=== PATIENT | female | born 1990 | race Two or more races ===

== ENCOUNTER 2019-09-30 22:05 | Emergency (ER) | payer MEDICAID ==
[~2019-09-30] VITALS: Ht 154.9 cm; Wt 68.0 kg
[2019-09-30 23:23] LABS: Urine Bacteria FEW /hpf (None Seen); Urine Blood Negative /uL (Negative); Urine Specific Gravity 1.032 (1.001-1.035); Urine WBC 9 /hpf (0 - 5)
[2019-09-30 23:26] VITALS: BP 108/68
== END 2019-09-30 23:58 | disposition home or self-care (01) ==
LOC: ER 22:07
DX: O23.42 Unspecified infection of urinary tract in pregnancy, second trimester (principal); Z3A.19 19 weeks gestation of pregnancy
CPT/HCPCS: 81001

== ENCOUNTER 2019-12-14 10:53 | Observation (INO) | payer MEDICAID | END 2019-12-14 11:40 | disposition home or self-care (01) | DRG 566 | LOC: LDRP 10:53 | PROVIDERS: ADMIT Specialist; ATTEND Specialist | DX: O35.8XX0 Maternal care for other (suspected) fetal abnormality and damage, not applicable or unspecified (principal); Z3A.29 29 weeks gestation of pregnancy | CPT/HCPCS: 59025; 76818; 81002; G0378 ==

== ENCOUNTER 2019-12-31 15:00 | Observation (INO) | payer MEDICAID ==
[2019-12-31] MEDS ORDERED: PREN-96 PO (16:20)
== END 2019-12-31 16:38 | disposition home or self-care (01) | DRG 566 ==
LOC: LDRP 15:00
PROVIDERS: ADMIT Specialist; ATTEND Specialist
DX: O69.89X0 Labor and delivery complicated by other cord complications, not applicable or unspecified (principal); O24.410 Gestational diabetes mellitus in pregnancy, diet controlled; Z3A.31 31 weeks gestation of pregnancy
CPT/HCPCS: 59025; 76818; 81002; 82962; G0378

== ENCOUNTER 2020-01-04 12:15 | Observation (INO) | payer MEDICAID ==
[~2020-01-04 12:15] MED LIST: PREN-96 PO
== END 2020-01-04 13:25 | disposition home or self-care (01) | DRG 566 ==
LOC: LDRP 12:15
PROVIDERS: ADMIT Specialist; ATTEND Specialist
DX: O69.89X0 Labor and delivery complicated by other cord complications, not applicable or unspecified (principal); Z3A.32 32 weeks gestation of pregnancy
CPT/HCPCS: 59025; 76818; 81002; 82948; 82962; G0378

== ENCOUNTER 2020-01-07 10:28 | Observation (INO) | payer MEDICAID | END 2020-01-07 15:29 | disposition home or self-care (01) | DRG 566 | LOC: LDRP 13:00 | PROVIDERS: ADMIT Specialist; ATTEND Specialist | DX: O36.8931 Maternal care for other specified fetal problems, third trimester, fetus 1 (principal); O32.1XX0 Maternal care for breech presentation, not applicable or unspecified; O26.893 Other specified pregnancy related conditions, third trimester; R51 Headache; O24.410 Gestational diabetes mellitus in pregnancy, diet controlled; Z3A.32 32 weeks gestation of pregnancy | CPT/HCPCS: 59025; 76818; 81002; G0378 ==

== ENCOUNTER 2020-01-11 10:03 | Observation (INO) | payer MEDICAID ==
[~2020-01-11] VITALS: Ht 154.9 cm; Wt 76.7 kg
[2020-01-11] MEDS: TERBUTALINE SULFATE 1 MG/ML 1ML VIAL SC SCH ×3 (14:29→15:24)
== END 2020-01-11 16:55 | disposition home or self-care (01) | DRG 566 ==
LOC: LDRP 12:40
PROVIDERS: ADMIT Specialist; ATTEND Specialist
DX: O36.8931 Maternal care for other specified fetal problems, third trimester, fetus 1 (principal); O24.410 Gestational diabetes mellitus in pregnancy, diet controlled; O62.9 Abnormality of forces of labor, unspecified; Z3A.33 33 weeks gestation of pregnancy
CPT/HCPCS: 59025; 76818; 81002; 82948; 82962; 96372; G0378; J3105; 96365

== ENCOUNTER 2020-01-14 19:01 | Observation (INO) | payer MEDICAID | END 2020-01-14 20:30 | disposition home or self-care (01) | DRG 566 | LOC: LDRP 19:01 | PROVIDERS: ADMIT Specialist; ATTEND Specialist | DX: O24.410 Gestational diabetes mellitus in pregnancy, diet controlled (principal); O36.8930 Maternal care for other specified fetal problems, third trimester, not applicable or unspecified; O62.9 Abnormality of forces of labor, unspecified; Z3A.33 33 weeks gestation of pregnancy | CPT/HCPCS: 59025; 76818; 81002; 82948; 82962; G0378 ==

== ENCOUNTER 2020-01-18 18:54 | Observation (INO) | payer MEDICAID | END 2020-01-18 21:15 | disposition home or self-care (01) | DRG 566 | LOC: LDRP 18:54 | PROVIDERS: ADMIT Specialist; ATTEND Specialist | DX: O24.419 Gestational diabetes mellitus in pregnancy, unspecified control (principal); O36.8930 Maternal care for other specified fetal problems, third trimester, not applicable or unspecified; Z3A.34 34 weeks gestation of pregnancy | CPT/HCPCS: 59025; 76818; 81002; 82962; 87210; G0378 ==

== ENCOUNTER 2020-01-21 08:13 | Observation (INO) | payer MEDICAID ==
[2020-01-21] MEDS ORDERED: NIF10C PO (09:05)
== END 2020-01-21 09:25 | disposition home or self-care (01) | DRG 566 ==
LOC: LDRP 08:13
PROVIDERS: ADMIT Specialist; ATTEND Specialist
DX: O36.8930 Maternal care for other specified fetal problems, third trimester, not applicable or unspecified (principal); Z3A.34 34 weeks gestation of pregnancy
CPT/HCPCS: 59025; 76818; 81002; 82948; 82962; G0378

== ENCOUNTER 2020-01-25 08:20 | Observation (INO) | payer MEDICAID ==
[~2020-01-25 08:20] MED LIST changes: +NIF10C PO
== END 2020-01-25 09:08 | disposition home or self-care (01) | DRG 566 ==
LOC: LDRP 08:20
PROVIDERS: ADMIT Specialist; ATTEND Specialist
DX: O24.419 Gestational diabetes mellitus in pregnancy, unspecified control (principal); O36.8930 Maternal care for other specified fetal problems, third trimester, not applicable or unspecified; Z3A.35 35 weeks gestation of pregnancy
CPT/HCPCS: 59025; 76818; 81002; 82948; 82962; G0378

== ENCOUNTER 2020-01-27 18:32 | Observation (INO) | payer MEDICAID ==
[2020-01-27] MEDS ORDERED: NIFEdipine 10 MG CAP PO ONE (19:15)
[2020-01-27 19:45] LABS: Urine Bacteria FEW /hpf (None Seen); Urine Blood Negative /uL (Negative); Urine Specific Gravity 1.017 (1.001-1.035); Urine WBC <1 /hpf (0 - 5)
== END 2020-01-27 21:23 | disposition home or self-care (01) | DRG 563 ==
LOC: LDRP 18:32
PROVIDERS: ADMIT Specialist; ATTEND Specialist
DX: O60.03 Preterm labor without delivery, third trimester (principal); Z3A.35 35 weeks gestation of pregnancy
CPT/HCPCS: 59025; 76818; 81001; 81002; 82948; 82962; G0378

== ENCOUNTER 2020-01-31 08:07 | Observation (INO) | payer MEDICAID | END 2020-01-31 09:27 | disposition home or self-care (01) | DRG 566 | LOC: LDRP 08:07 | PROVIDERS: ADMIT Specialist; ATTEND Specialist | DX: O24.419 Gestational diabetes mellitus in pregnancy, unspecified control (principal); O36.8930 Maternal care for other specified fetal problems, third trimester, not applicable or unspecified; O62.9 Abnormality of forces of labor, unspecified; R51 Headache; Z3A.36 36 weeks gestation of pregnancy | CPT/HCPCS: 59025; 76818; 81002; 82948; 82962; G0378 ==

== ENCOUNTER 2020-02-02 08:13 | Observation (INO) | payer MEDICAID | END 2020-02-02 09:24 | disposition home or self-care (01) | DRG 566 | LOC: LDRP 08:13 | PROVIDERS: ADMIT Specialist; ATTEND Specialist | DX: O24.410 Gestational diabetes mellitus in pregnancy, diet controlled (principal); O69.89X0 Labor and delivery complicated by other cord complications, not applicable or unspecified; Z3A.36 36 weeks gestation of pregnancy | CPT/HCPCS: 59025; 76818; 81002; 82962; G0378 ==

== ENCOUNTER 2020-02-05 08:14 | Observation (INO) | payer MEDICAID | END 2020-02-05 09:15 | disposition home or self-care (01) | LOC: LDRP 08:14 | PROVIDERS: ADMIT Specialist; ATTEND Specialist | DX: O24.410 Gestational diabetes mellitus in pregnancy, diet controlled (principal); O69.89X0 Labor and delivery complicated by other cord complications, not applicable or unspecified; Z3A.36 36 weeks gestation of pregnancy | CPT/HCPCS: 59025; 76818; 81002; 82962; 94760; G0378 ==

== ENCOUNTER 2020-02-09 08:38 | Observation (INO) | payer MEDICAID ==
[~2020-02-09 08:38] MED LIST changes: -NIF10C PO
== END 2020-02-09 09:40 | disposition home or self-care (01) ==
LOC: LDRP 08:38
PROVIDERS: ADMIT Specialist; ATTEND Specialist
DX: O24.410 Gestational diabetes mellitus in pregnancy, diet controlled (principal); O36.8930 Maternal care for other specified fetal problems, third trimester, not applicable or unspecified; Z3A.37 37 weeks gestation of pregnancy
CPT/HCPCS: 76818; 82962; G0378; 59025; 81002; 82948

== ENCOUNTER 2020-02-12 08:18 | Observation (INO) | payer MEDICAID | END 2020-02-12 09:20 | disposition home or self-care (01) | LOC: LDRP 08:18 | PROVIDERS: ADMIT Specialist; ATTEND Specialist | DX: O24.410 Gestational diabetes mellitus in pregnancy, diet controlled (principal); Z3A.37 37 weeks gestation of pregnancy | CPT/HCPCS: 59025; 76818; 81002; 82948; 82962; G0378 ==

== ENCOUNTER 2020-02-16 08:10 | Observation (INO) | payer MEDICAID | END 2020-02-16 09:50 | disposition home or self-care (01) | LOC: LDRP 08:10 | PROVIDERS: ADMIT Specialist; ATTEND Specialist | DX: O24.410 Gestational diabetes mellitus in pregnancy, diet controlled (principal); Z20.828 Contact with and (suspected) exposure to other viral communicable diseases; O36.8930 Maternal care for other specified fetal problems, third trimester, not applicable or unspecified; O62.9 Abnormality of forces of labor, unspecified; O26.893 Other specified pregnancy related conditions, third trimester; R10.2 Pelvic and perineal pain; Z3A.38 38 weeks gestation of pregnancy | CPT/HCPCS: 59025; 76818; 81002; 82948; 82962; G0378 ==

== ENCOUNTER 2020-02-16 23:51 | Inpatient (IN) | payer MEDICAID ==
[~2020-02-16] VITALS: Ht 30.5 cm; Wt 0.5 kg
[2020-02-16] MEDS ORDERED: LACT. RINGERS/OXYTOCIN 20UNITS 1,000 ML IV ONE (23:59)
[2020-02-16] MEDS ORDERED: LIDOCAINE 2%HCL (LOCAL ANESTH.) INJ 20ML MDV ONE (23:59)
[2020-02-16] MEDS ORDERED: METHYLERGONOVINE MALEATE 0.2 MG/ML AMP IM ONE (23:59)
[2020-02-17] MEDS ORDERED: LIDOCAINE 2%HCL (LOCAL ANESTH.) INJ 20ML MDV ID ONE (00:05)
[2020-02-17] MEDS ORDERED: BUTORPHANOL TARTRATE 2 MG/1 ML VIAL IV ONE (00:05)
[2020-02-17] MEDS ORDERED: PHISODERM TOP SOLN 240ML BTL TOP PRN (00:05)
[2020-02-17] MEDS ORDERED: WITCH HAZEL-GLYCERIN PAD TOP PRN (00:05)
[2020-02-17] MEDS ORDERED: LACTATED RINGER'S 1,000 ML IV SCH (00:05)
[2020-02-17] MEDS ORDERED: PROMETHAZINE HCL 25 MG/ML 1ML IM ONE (00:05)
[2020-02-17] MEDS ORDERED: PROMETHAZINE HCL 25 MG/ML 1ML IV ONE (00:05)
[2020-02-17] MEDS ORDERED: DERMOPLAST 60ML BOTTLE TOP PRN (00:05)
[2020-02-17] MEDS ORDERED: BUTORPHANOL TARTRATE 2 MG/1 ML VIAL ONE (00:08)
[2020-02-17] MEDS ORDERED: PROMETHAZINE HCL 25 MG/ML 1ML ONE (00:08)
[2020-02-17] MEDS ORDERED: LACT. RINGERS/OXYTOCIN 20UNITS 500 ML IV ONE (03:02)
[2020-02-17] MEDS ORDERED: ACCU-CHEK COMFORT CURVE STRIP VI ONE (03:15)
[2020-02-17] MEDS ORDERED: ACETAMINOPHEN 325 MG TAB PO PRN (03:15)
--- NOTE | 2020-02-17 03:45 | NUR ---
Ambulation: Patient OOB with standby assistance by RN. Patient ambulated to bathroom with steady gait. Patient able to void 200ml without difficulty. [facility] teaching provided with returned demonstration by patient. Clean gown provided and bed linen changed. Patient ambulated back to bed with steady gait and no distress noted.
[2020-02-17] MEDS ORDERED: LACT. RINGERS/OXYTOCIN 20UNITS 1,000 ML IV SCH (04:02)
[2020-02-17 04:48] LABS: Urine Bacteria FEW /hpf (None Seen); Urine Blood Negative /uL (Negative); Urine Mucus FEW (None Seen); Urine Specific Gravity 1.026 (1.001-1.035); Urine WBC 6 /hpf (0 - 5)
[2020-02-17 04:50] LABS: Alcohol, Urine < 3.0 mg/dL (0-10); Amphetamine Screen, Urine NEGATIVE (NEGATIVE); Barbiturate Scree,Urine NEGATIVE (NEGATIVE); Benzodiazephine Screen, Urine NEGATIVE (NEGATIVE); Cannabinoid Screen, Urine NEGATIVE (NEGATIVE); Cocaine Screen, Urine NEGATIVE (NEGATIVE); Opiate Scree,Urine NEGATIVE (NEGATIVE); Phencyclidine Screen, Urine NEGATIVE (NEGATIVE)
[2020-02-17 04:51] LABS: Albumin 2.5 g/dL (3.4-5.0); BUN/Creatinine Ratio 23.7; Bilirubin, Total 0.6 mg/dL (0.2-1.0); Calcium 8.2 mg/dL (8.5-10.1); Potassium 3.6 mmol/L (3.5-5.1); Total Protein 6.6 g/dL (6.4-8.2)
[2020-02-17 04:52] LABS: INR 0.93 (0.9-1.15); Partial Thromboplastin Time 27.9 sec (23.0-31.2)
[2020-02-17 04:54] LABS: Basophils # (auto) 0 10 ^3/uL (0-0.2); Basophils % (auto) 0.1 % (0.0-2.0); Eosinophils # (auto) 0.1 10 ^3/uL (0-0.8); Eosinophils % (auto) 0.7 % (0.0-7.0); Hematocrit 32.7 % (36.0-46.0); Lymphocytes # (auto) 2.3 10 ^3/uL (0.4-5.4); Lymphocytes % (auto) 21.5 % (10.0-50.0); Mean Corpuscular Hemoglobin 28.4 pg (28.0-32.0); Mean Corpuscular Hgb Conc. 33.6 g/dL (32.0-36.0); Mean Corpuscular Volume 84.6 fL (80.0-100.0); Monocytes # (auto) 0.7 10 ^3/uL (0-1.3); Monocytes % (auto) 6.5 % (0.0-12.0); Neutrophils # (auto) 7.6 10 ^3/uL (1.6-8.6); Neutrophils % (auto) 71.2 % (37.0-80.0); Platelet Count (auto) 208 10^3/uL (140-450); Red Blood Cells 3.86 10^6/uL (4.0-5.20); Red Cell Distribution Width 14.6 % (11.8-14.3); White Blood Cell 10.7 10^3/uL (4.4-10.8)
[2020-02-17 06:56] VITALS: BP 101/59
[2020-02-17 11:00] VITALS: BP 114/55
[2020-02-17] MEDS: IBUPROFEN 600 MG TAB PO PRN (16:03)
[2020-02-17 19:00] VITALS: BP 104/51
[2020-02-17 23:30] VITALS: BP 102/53
[2020-02-18] MEDS: IBUPROFEN 600 MG TAB PO PRN (00:19)
[2020-02-18 02:50] VITALS: BP 92/54
--- NOTE | 2020-02-18 06:15 | NUR ---
Report received from MARIO Emery. Assumed care of pt. Addendum: 02/18/20 at 1014 by Liz Macias RN Amended: Links added.
[2020-02-18 07:09] VITALS: BP 101/60
[2020-02-18 08:06] LABS: RPR Non Reactive (Non Reactive)
[2020-02-18] MEDS ORDERED: TETANUS-DIPTH-ACEL PERTUSSIS 0.5ML SYR Tdap IM ONE (08:30)
--- NOTE | 2020-02-18 09:39 | NUR ---
Discharge: Discharge instructions given as ordered. Pt encouraged to follow up with [facility] as instructed. All questions and concerns addressed. Patient verbalized understanding. Medication reconciliation completed and copy given to patient. All required/requested vaccines given and copies of vaccinations given to patient. Patient encouraged to prepare to depart unit.
--- NOTE | 2020-02-18 10:28 | NUR ---
Discharge: Patient ambulates to vehicle with steady gait, with all personal belongings, accompanied by staff and family member. No distress noted at time of departure, no adverse changes in status since initial assessment.
== END 2020-02-18 10:28 | disposition home or self-care (01) | DRG 560 ==
LOC: LDRP 23:51
PROVIDERS: ADMIT Specialist; ATTEND Specialist
PROC: 10E0XZZ Delivery of Products of Conception, External Approach (ICD-10-PCS; principal; 2020-02-17)
DX: O69.81X0 Labor and delivery complicated by cord around neck, without compression, not applicable or unspecified (principal); O24.420 Gestational diabetes mellitus in childbirth, diet controlled; Z37.0 Single live birth; Z3A.38 38 weeks gestation of pregnancy; O70.0 First degree perineal laceration during delivery; Z20.828 Contact with and (suspected) exposure to other viral communicable diseases
CPT/HCPCS: 36415; 59025; 59409; 80053; 80307; 81001; 82948; 84112; 85025; 85610; 85730; 86592; 86850; 86900; 86901; 87426; 90715; 96360; 96361; 96365; 96366; 96372; 96374; 96375; G0378; J2590

== ENCOUNTER 2020-11-16 10:08 | Observation (INO) | payer MEDICAID | END 2020-11-21 11:25 | disposition home or self-care (01) | LOC: LDRP 11-21 10:20 | PROVIDERS: ADMIT Specialist; ATTEND Specialist | DX: O24.419 Gestational diabetes mellitus in pregnancy, unspecified control (principal); Z3A.32 32 weeks gestation of pregnancy | CPT/HCPCS: 59025; 76818; 81002; 82948; 82962; G0378 ==

== ENCOUNTER 2020-11-19 08:24 | Observation (INO) | payer MEDICAID | END 2020-11-19 10:10 | disposition home or self-care (01) | LOC: LDRP 08:24 | PROVIDERS: ADMIT Specialist; ATTEND Specialist | DX: O24.419 Gestational diabetes mellitus in pregnancy, unspecified control (principal); Z3A.31 31 weeks gestation of pregnancy | CPT/HCPCS: 59025; 76818; 81002; 82948; 82962; 94760; G0378 ==

== ENCOUNTER 2020-11-24 08:05 | Observation (INO) | payer MEDICAID | END 2020-11-24 09:38 | disposition home or self-care (01) | LOC: LDRP 08:05 | PROVIDERS: ADMIT Specialist; ATTEND Specialist | DX: O24.419 Gestational diabetes mellitus in pregnancy, unspecified control (principal); Z3A.32 32 weeks gestation of pregnancy | CPT/HCPCS: 59025; 76818; 81002; 82962; G0378 ==

== ENCOUNTER 2020-12-02 10:05 | Observation (INO) | payer MEDICAID | END 2020-12-02 11:20 | disposition home or self-care (01) | LOC: LDRP 10:05 | PROVIDERS: ADMIT Specialist; ATTEND Specialist | DX: O24.419 Gestational diabetes mellitus in pregnancy, unspecified control (principal); Z3A.33 33 weeks gestation of pregnancy | CPT/HCPCS: 59025; 76818; 81002; 82948; 82962; 94760; G0378 ==

== ENCOUNTER 2020-12-05 08:04 | Observation (INO) | payer MEDICAID | END 2020-12-05 09:07 | disposition home or self-care (01) | LOC: LDRP 08:04 | PROVIDERS: ADMIT Obstetrics & Gynecology; ATTEND Obstetrics & Gynecology | DX: O24.419 Gestational diabetes mellitus in pregnancy, unspecified control (principal); Z3A.34 34 weeks gestation of pregnancy | CPT/HCPCS: 59025; 76818; 81002; 82948; G0378 ==

== ENCOUNTER 2020-12-13 09:11 | Observation (INO) | payer MEDICAID | END 2020-12-13 10:45 | disposition home or self-care (01) | LOC: LDRP 09:11 | PROVIDERS: ADMIT Obstetrics & Gynecology; ATTEND Obstetrics & Gynecology | DX: O24.419 Gestational diabetes mellitus in pregnancy, unspecified control (principal); Z3A.35 35 weeks gestation of pregnancy | CPT/HCPCS: 59025; 76818; 81002; 82948; 82962; 94760; G0378 ==

== ENCOUNTER 2020-12-15 08:05 | Observation (INO) | payer MEDICAID ==
[~2020-12-15] VITALS: Ht 154.9 cm; Wt 80.7 kg
== END 2020-12-15 09:25 | disposition home or self-care (01) ==
LOC: LDRP 08:05
PROVIDERS: ADMIT Specialist; ATTEND Specialist
DX: O24.419 Gestational diabetes mellitus in pregnancy, unspecified control (principal); Z3A.35 35 weeks gestation of pregnancy
CPT/HCPCS: 59025; 76818; 81002; 82948; 82962; 94760; G0378

== ENCOUNTER 2020-12-19 08:11 | Observation (INO) | payer MEDICAID | END 2020-12-19 10:20 | disposition home or self-care (01) | LOC: LDRP 08:11 | PROVIDERS: ADMIT Obstetrics & Gynecology; ATTEND Obstetrics & Gynecology | DX: O24.419 Gestational diabetes mellitus in pregnancy, unspecified control (principal); Z3A.36 36 weeks gestation of pregnancy | CPT/HCPCS: 59025; 76818; 81002; 82948; 82962; G0378 ==

== ENCOUNTER 2020-12-22 08:21 | Observation (INO) | payer MEDICAID | END 2020-12-22 09:52 | disposition home or self-care (01) | LOC: LDRP 08:21 | PROVIDERS: ADMIT Obstetrics & Gynecology; ATTEND Obstetrics & Gynecology | DX: O24.419 Gestational diabetes mellitus in pregnancy, unspecified control (principal); O40.3XX0 Polyhydramnios, third trimester, not applicable or unspecified; Z3A.36 36 weeks gestation of pregnancy | CPT/HCPCS: 59025; 76818; 81002; 82962; 94760; G0378 ==

== ENCOUNTER 2020-12-27 08:28 | Observation (INO) | payer MEDICAID ==
[~2020-12-27] VITALS: Ht 154.9 cm; Wt 81.2 kg
== END 2020-12-27 09:17 | disposition home or self-care (01) ==
LOC: LDRP 08:28
PROVIDERS: ADMIT Specialist; ATTEND Specialist
DX: O24.419 Gestational diabetes mellitus in pregnancy, unspecified control (principal); Z3A.36 36 weeks gestation of pregnancy
CPT/HCPCS: 59025; 76818; 81002; 82948; 82962; 94760; G0378

== ENCOUNTER 2020-12-29 08:37 | Observation (INO) | payer MEDICAID | END 2020-12-29 09:30 | disposition home or self-care (01) | LOC: LDRP 08:37 | PROVIDERS: ADMIT Specialist; ATTEND Specialist | DX: O24.419 Gestational diabetes mellitus in pregnancy, unspecified control (principal); Z3A.37 37 weeks gestation of pregnancy | CPT/HCPCS: 59025; 76818; 81002; 82948; G0378 ==

== ENCOUNTER → 2021-01-04 | Outpatient (CLI) | payer MEDICAID ==
[2021-01-04 09:54] LABS: Basophils # (auto) 0 10 ^3/uL (0-0.2); Basophils % (auto) 0.3 % (0.0-2.0); Eosinophils # (auto) 0.1 10 ^3/uL (0-0.8); Eosinophils % (auto) 1.6 % (0.0-7.0); Hematocrit 34.1 % (36.0-46.0); Hemoglobin 11.4 g/dL (12.2-16.2); Lymphocytes # (auto) 2.1 10 ^3/uL (0.4-5.4); Lymphocytes % (auto) 28.1 % (10.0-50.0); Mean Corpuscular Hemoglobin 28.9 pg (28.0-32.0); Mean Corpuscular Hgb Conc. 33.5 g/dL (32.0-36.0); Mean Corpuscular Volume 86.4 fL (80.0-100.0); Monocytes # (auto) 0.6 10 ^3/uL (0-1.3); Monocytes % (auto) 7.7 % (0.0-12.0); Neutrophils # (auto) 4.7 10 ^3/uL (1.6-8.6); Neutrophils % (auto) 62.3 % (37.0-80.0); Red Blood Cells 3.95 10^6/uL (4.0-5.20); Red Cell Distribution Width 14.5 % (11.8-14.3); White Blood Cell 7.5 10^3/uL (4.4-10.8)
[2021-01-05 06:06] LABS: RPR Non Reactive (Non Reactive)
== END | disposition home or self-care (01) ==
LOC: LAB 09:40
PROVIDERS: ATTEND Obstetrics & Gynecology
DX: Z34.83 Encounter for supervision of other normal pregnancy, third trimester (principal); Z3A.38 38 weeks gestation of pregnancy
CPT/HCPCS: 36415; 83036; 84112; 85025; 86592

== ENCOUNTER 2021-01-05 16:28 | Observation (INO) | payer MEDICAID ==
[~2021-01-05] VITALS: Ht 154.9 cm; Wt 81.2 kg
[2021-01-07] MEDS ORDERED: METF-370 PO (03:56)
== END 2021-01-07 04:04 | disposition home or self-care (01) ==
LOC: LDRP 01-06 23:06
PROVIDERS: ADMIT Obstetrics & Gynecology; ATTEND Obstetrics & Gynecology
DX: O24.419 Gestational diabetes mellitus in pregnancy, unspecified control (principal); Z20.822 Contact with and (suspected) exposure to COVID-19; O99.891 Other specified diseases and conditions complicating pregnancy; M54.9 Dorsalgia, unspecified; Z3A.38 38 weeks gestation of pregnancy
CPT/HCPCS: 36415; 59025; 76818; 81002; 82948; 82962; 87426; 94760; G0378

== ENCOUNTER 2021-01-07 14:16 | Inpatient (IN) | payer MEDICAID ==
[~2021-01-07] VITALS: Ht 154.9 cm; Wt 81.6 kg
[~2021-01-07 14:16] MED LIST changes: +METF-370 PO
[2021-01-07] MEDS ORDERED: LACTATED RINGER'S 1,000 ML IV SCH (14:30)
[2021-01-07] MEDS ORDERED: LIDOCAINE 2%HCL (LOCAL ANESTH.) INJ 20ML MDV IJ PRN (14:30)
[2021-01-07] MEDS ORDERED: PHISODERM TOP SOLN 240ML BTL TOP PRN (14:30)
[2021-01-07] MEDS ORDERED: WITCH HAZEL-GLYCERIN PAD TOP PRN (14:30)
[2021-01-07] MEDS ORDERED: BUTORPHANOL TARTRATE 2 MG/1 ML VIAL IV PRN ×2 (14:30)
[2021-01-07] MEDS ORDERED: DERMOPLAST 60ML BOTTLE TOP PRN (14:30)
[2021-01-07] MEDS ORDERED: PROMETHAZINE HCL 25 MG/ML 1ML IV PRN (14:30)
[2021-01-07] MEDS ORDERED: LACT. RINGERS/OXYTOCIN 20UNITS 500 ML IV ONE ×2 (14:45→15:15)
[2021-01-07] MEDS ORDERED: CARBOPROST TROMETHAMINE 250 MCG/1ML VIAL IM PRN (14:45)
[2021-01-07] MEDS ORDERED: miSOPROStol 100 mcg TAB PR ONE (14:45)
[2021-01-07] MEDS ORDERED: miSOPROStol 100 mcg TAB SL ONE (14:45)
[2021-01-07] MEDS ORDERED: METHYLERGONOVINE MALEATE 0.2 MG/ML AMP IM PRN (14:45)
[2021-01-07 15:08] LABS: Basophils # (auto) 0 10 ^3/uL (0-0.2); Basophils % (auto) 0.3 % (0.0-2.0); Eosinophils # (auto) 0 10 ^3/uL (0-0.8); Eosinophils % (auto) 0.6 % (0.0-7.0); Hemoglobin 11.2 g/dL (12.2-16.2); Lymphocytes # (auto) 1.6 10 ^3/uL (0.4-5.4); Lymphocytes % (auto) 24.1 % (10.0-50.0); Mean Corpuscular Hemoglobin 28.3 pg (28.0-32.0); Mean Corpuscular Volume 85.9 fL (80.0-100.0); Monocytes # (auto) 0.4 10 ^3/uL (0-1.3); Monocytes % (auto) 6.9 % (0.0-12.0); Neutrophils # (auto) 4.5 10 ^3/uL (1.6-8.6); Neutrophils % (auto) 68.1 % (37.0-80.0); Red Blood Cells 3.96 10^6/uL (4.0-5.20); Red Cell Distribution Width 14.5 % (11.8-14.3); White Blood Cell 6.5 10^3/uL (4.4-10.8)
[2021-01-07 15:10] LABS: Urine Bacteria NONE SEEN /hpf (None Seen); Urine Blood 2+ /uL (Negative); Urine Hyaline Cast FEW /lpf (0 - 2); Urine Specific Gravity 1.021 (1.001-1.035); Urine WBC 32 /hpf (0 - 5)
[2021-01-07] MEDS ORDERED: PENICILLIN G POT 5MIL/D5 50ML 50 ML IV ONE (15:15)
[2021-01-07 15:24] LABS: INR 0.95 (0.9-1.15); Partial Thromboplastin Time 28.2 sec (23.0-31.2)
[2021-01-07 15:32] LABS: Potassium 3.7 mmol/L (3.5-5.1)
[2021-01-07 15:33] LABS: Alcohol, Urine < 3.0 mg/dL (0-10); Amphetamine Screen, Urine NEGATIVE (NEGATIVE); Barbiturate Scree,Urine NEGATIVE (NEGATIVE); Benzodiazephine Screen, Urine NEGATIVE (NEGATIVE); Cannabinoid Screen, Urine NEGATIVE (NEGATIVE); Cocaine Screen, Urine NEGATIVE (NEGATIVE); Opiate Scree,Urine NEGATIVE (NEGATIVE); Phencyclidine Screen, Urine NEGATIVE (NEGATIVE)
[2021-01-07 15:36] LABS: Albumin 2.7 g/dL (3.4-5.0); BUN/Creatinine Ratio 27.3; Calcium 8.6 mg/dL (8.5-10.1)
[2021-01-07 15:48] LABS: Bilirubin, Total 0.5 mg/dL (0.2-1.0); Total Protein 6.8 g/dL (6.4-8.2)
[2021-01-07] MEDS ORDERED: LACT. RINGERS/OXYTOCIN 20UNITS 1,000 ML IV ONE (16:15)
[2021-01-07] MEDS ORDERED: ACETAMINOPHEN 325 MG TAB PO PRN (16:30)
[2021-01-07] MEDS: IBUPROFEN 600 MG TAB PO PRN ×2 (16:39→20:26)
[2021-01-07 18:54] VITALS: BP 116/62
[2021-01-07] MEDS: ceFAZolin 1GM/50ML 50 ML IV SCH (19:00)
[2021-01-07] MEDS ORDERED: PENICILLIN G POTASSIUM 2,500,000 UNITS in D5W 5% 50 ML IV SCH (19:15)
[2021-01-07 22:55] VITALS: BP 112/56
[2021-01-08] MEDS: IBUPROFEN 600 MG TAB PO PRN ×3 (00:25→10:39)
[2021-01-08] MEDS: ceFAZolin 1GM/50ML 50 ML IV SCH ×2 (02:30→10:39)
[2021-01-08 02:34] VITALS: BP 99/50
[2021-01-08] MEDS ORDERED: TETANUS-DIPTH-ACEL PERTUSSIS 0.5ML SYR Tdap IM ONE (06:30)
[2021-01-08 07:00] VITALS: BP 100/53
[2021-01-08 07:06] LABS: RPR Non Reactive (Non Reactive)
[2021-01-08 11:02] VITALS: BP 104/56
[2021-01-08 15:00] VITALS: BP 119/65
[2021-01-08 18:34] VITALS: BP 108/56
== END 2021-01-08 20:24 | disposition home or self-care (01) | DRG 560 ==
LOC: OBSVTOIN 14:16 → LDRP 14:16
PROVIDERS: ADMIT Obstetrics & Gynecology; ATTEND Obstetrics & Gynecology
PROC: 10E0XZZ Delivery of Products of Conception, External Approach (ICD-10-PCS; principal; 2021-01-07)
PROC: 3E0234Z Introduction of Serum, Toxoid and Vaccine into Muscle, Percutaneous Approach (ICD-10-PCS; 2021-01-07)
DX: O24.420 Gestational diabetes mellitus in childbirth, diet controlled (principal); O69.81X0 Labor and delivery complicated by cord around neck, without compression, not applicable or unspecified; Z37.0 Single live birth; Z3A.39 39 weeks gestation of pregnancy; O71.82 Other specified trauma to perineum and vulva; Z23 Encounter for immunization
CPT/HCPCS: 36415; 59025; 59409; 80053; 80307; 81001; 82948; 82962; 85025; 85610; 85730; 86592; 86850; 86900; 86901; 90471; 90715; 94760; 96360; 96361; 96365; 96366; 96368; 96372; G0378; J0690; J2540; J2590; J7060

== ENCOUNTER 2021-03-03 06:05 | Day surgery (SDC) | payer MEDICAID ==
[2021-03-01 10:32] LABS: Basophils # (auto) 0 10 ^3/uL (0-0.2); Basophils % (auto) 0.3 % (0.0-2.0); Eosinophils # (auto) 0.2 10 ^3/uL (0-0.8); Eosinophils % (auto) 3.5 % (0.0-7.0); Hemoglobin 13.8 g/dL (12.2-16.2); Lymphocytes # (auto) 2.1 10 ^3/uL (0.4-5.4); Lymphocytes % (auto) 43.9 % (10.0-50.0); Mean Corpuscular Hemoglobin 29.6 pg (28.0-32.0); Mean Corpuscular Hgb Conc. 34.5 g/dL (32.0-36.0); Mean Corpuscular Volume 85.7 fL (80.0-100.0); Monocytes # (auto) 0.3 10 ^3/uL (0-1.3); Monocytes % (auto) 6.2 % (0.0-12.0); Neutrophils # (auto) 2.2 10 ^3/uL (1.6-8.6); Neutrophils % (auto) 46.1 % (37.0-80.0); Nucleated Red Blood Cells % 0.1 %; Red Blood Cells 4.67 10^6/uL (4.0-5.20); Red Cell Distribution Width 17.1 % (11.8-14.3); White Blood Cell 4.7 10^3/uL (4.4-10.8)
[2021-03-01 11:20] LABS: Potassium 4.1 mmol/L (3.5-5.1)
[2021-03-01 11:41] LABS: Albumin 3.7 g/dL (3.4-5.0); BUN/Creatinine Ratio 24.4; Bilirubin, Total 0.7 mg/dL (0.2-1.0); Calcium 9.3 mg/dL (8.5-10.1)
[~2021-03-03] VITALS: Ht 154.9 cm; Wt 75.7 kg
[2021-03-03] MEDS ORDERED: NEOSTIGMINE 1 MG/ML INJ (10mg/10ML VIAL) ONE (06:43)
[2021-03-03] MEDS ORDERED: fentaNYL CITRATE 100 MCG/2 ML VL ONE (06:43)
[2021-03-03] MEDS ORDERED: PROPOFOL 10 MG/ML 20 ML IV ONE (06:43)
[2021-03-03] MEDS ORDERED: MEPERIDINE HCL (25 MG/ML) 1ML VIAL ONE (06:43)
[2021-03-03] MEDS ORDERED: ONDANSETRON HCL 4 MG/2 ML VIAL ONE (06:43)
[2021-03-03] MEDS ORDERED: MIDAZOLAM HCL 2MG/2ML 2ml VIAL (1mg/ml) ONE (06:43)
[2021-03-03] MEDS ORDERED: SODIUM CHLORIDE LOCK 10 ML ONE (06:43)
[2021-03-03] MEDS ORDERED: GLYCOPYRROLATE 0.2 MG/ML 1ML VIAL ONE (06:43)
[2021-03-03] MEDS ORDERED: ROCURONIUM 10MG/ML 10ML VIAL IV ONE (06:43)
[2021-03-03] MEDS ORDERED: LIDOCAINE 2% (LOCAL ANESTH.) PF 5ml SDV ONE (06:50)
[2021-03-03] MEDS ORDERED: ceFAZolin 1GM/50ML 100 ML IV ONE (07:23)
[2021-03-03] MEDS ORDERED: MORPHINE SULFATE 4 MG/ML SYR/VIAL IV PRN (07:30)
[2021-03-03] MEDS ORDERED: METOCLOPRAMIDE HCL 5MG/ml INJ 2ml VIAL IV PRN (07:30)
[2021-03-03] MEDS ORDERED: HYDROmorphone HCL 2 MG/ML VL IV PRN (07:30)
[2021-03-03] MEDS ORDERED: ONDANSETRON HCL 4 MG/2 ML VIAL IV PRN (08:30)
[2021-03-03] MEDS ORDERED: LACTATED RINGER'S 1,000 ML IV SCH (08:30)
[2021-03-03 09:15] VITALS: BP 138/81
== END 2021-03-03 09:15 | disposition home or self-care (01) ==
LOC: SUR 06:05
PROVIDERS: ATTEND Obstetrics & Gynecology
DX: Z30.2 Encounter for sterilization (principal); Z20.822 Contact with and (suspected) exposure to COVID-19; Z98.890 Other specified postprocedural states; Z79.899 Other long term (current) drug therapy; Z87.891 Personal history of nicotine dependence
CPT/HCPCS: 36415; 58671; 80053; 81025; 84702; 85025; 86850; 86900; 86901; 87086; J0690; J1170; J2001; J2175; J2250; J2405; J2704; J3010; U0003